=== PATIENT | female | born 1960 | race Caucasian/White ===

== ENCOUNTER 2016-09-29 07:30 | Inpatient (IN) | payer BC ==
[~2016-09-29] VITALS: Ht 165.1 cm; Wt 93.9 kg
[~2016-09-29 07:30] MED LIST: ESTRACE1 MG PO; HYDROCODONE-APA1 TAB PO; OXYBUTYNIN CHLOR5 MG PO; TYLENOL PM1 TAB PO; XANAX0.25 MG PO
[2016-09-29] MEDS ORDERED: PROBIOTIC1 EAC1 PO (09:56)
[2016-09-29 09:57] VITALS: BP 180/81; BMI 38.1
[2016-09-29 10:19] LABS: BASOPHILS 0.2 % (0.0-2.0); EOSINOPHILS 1.1 % (0-7); HEMATOCRIT 43.4 % (36.0-48.0); IMMATURE GRANULOCYTES 0.3 % (0-5); LYMPHOCYTES 20.8 % (15-50); MCH 30.7 pg (26.0-34.0); MCHC 34.6 g/dL (31.0-37.0); MCV 88.8 fL (80.0-100.0); MEAN PLATELET VOLUME 10.1 fL (7.4-10.4); MONOCYTES 7.7 % (2-11); NEUTROPHILS 69.9 % (40-80); PLATELET COUNT 253 10x3/uL (130-400); RBC 4.89 10x6/uL (4.00-5.40); RDW 13.4 % (11.5-14.5); WBC 8.9 10x3/uL (4.8-10.8)
[2016-09-29 10:39] LABS: CALC OSMOLALITY 277 mosm/kg (275-300); CALCIUM 9.7 mg/dL (8.5-10.1); CARBON DIOXIDE 22.6 mmol/L (21.0-32.0); CHLORIDE - SERUM 103 mmol/L (98-107); CREATININE - SERUM 0.7 mg/dL (0.6-1.3); GLUCOSE 100 mg/dL (74-106); POTASSIUM - SERUM 3.3 mmol/L (3.5-5.1); SODIUM 140 mmol/L (136-145); UREA NITROGEN 9 mg/dL (7-18); eGFR NON AFRICAN AMERICAN > 90 mL/min (90-120)
[2016-09-29 18:52] VITALS: BP 159/95
--- NOTE | 2016-09-29 19:20 | NUR ---
RECIEVED SHIFT REPORT. PT IS LYING IN BED. ALERT AND ORIENTED AND ABLE TO VERBALIZE NEEDS. IV IS PATENT AND FLUIDS RUNNING PER ORDER. LÓPEZ IS DRAINING URINE BY GRAVITY. SCD'S ON. PT IS AMBULATORY WITH ASSISTANCE BUT DOES REQUIRE MINIMAL ASSISTANCE TURNING IN BED FOR COMFORT AND SKIN CARE. DRESSINGS TO ABDOMEN C/D/I. VIJAY DRAIN INTACT WITH DRESSING C/D/I AND COMPRESSED. PT DENIES ANY PAIN AT THIS TIME. NO NEEDS ARE VERBALIZED AT THIS TIME. AT BEDSIDE. WILL CONTINUE TO MONITOR. SIDE RAILS ARE UP X 2. BED IS IN LOWEST POSITION. CALL LIGHT IS WITHIN REACH.
--- NOTE | 2016-09-29 20:17 | NUR ---
ADMIT ASSESSMENT COMPLETED. MEDS HUNG PER ORDER. PT STATUS REMAINS UNCHANGED FROM PREVIOUS. NO NEEDS ARE VOICED. WILL MONITOR. AT BEDSIDE. SIDE RAILS X 2. BED LOW. CALL LIGHT IN REACH.
--- NOTE | 2016-09-29 22:13 | NUR ---
PT REQUESTING SOMETHING FOR SLEEP. PAGE PLACED TO DR THURSTON. WILL AWAIT CALL BACK.
--- NOTE | 2016-09-29 22:16 | NUR ---
PAGE RECIEVED BACK AND NEW ORDERS RECIEVED.
[2016-09-30] VITALS (7 sets, daily range): BP systolic 109–167; BP diastolic 64–81; Ht 165.1 cm; Wt 93.9 kg
[2016-09-30 05:28] LABS: BASOPHILS 0.1 % (0.0-2.0); EOSINOPHILS 0 % (0-7); HEMATOCRIT 36.5 % (36.0-48.0); HEMOGLOBIN 12.4 g/dL (12-16); IMMATURE GRANULOCYTES 0.3 % (0-5); LYMPHOCYTES 8.7 % (15-50); MCH 30.5 pg (26.0-34.0); MCV 89.7 fL (80.0-100.0); MEAN PLATELET VOLUME 10.2 fL (7.4-10.4); MONOCYTES 8.7 % (2-11); NEUTROPHILS 82.2 % (40-80); PLATELET COUNT 238 10x3/uL (130-400); RBC 4.07 10x6/uL (4.00-5.40); RDW 13.5 % (11.5-14.5)
[2016-09-30 05:50] LABS: WBC 14.3 10x3/uL (4.8-10.8)
[2016-09-30 06:33] LABS: CALC OSMOLALITY 279 mosm/kg (275-300); CALCIUM 8.4 mg/dL (8.5-10.1); CARBON DIOXIDE 23.5 mmol/L (21.0-32.0); CHLORIDE - SERUM 107 mmol/L (98-107); GLUCOSE 118 mg/dL (74-106); MAGNESIUM - SERUM 1.6 mg/dL (1.8-2.4); PHOSPHOROUS 3.9 mg/dL (2.5-4.9); SODIUM 141 mmol/L (136-145); UREA NITROGEN 8 mg/dL (7-18)
[2016-09-30 06:36] LABS: CREATININE - SERUM 0.5 mg/dL (0.6-1.3); eGFR NON AFRICAN AMERICAN > 90 mL/min (90-120)
[2016-09-30 06:37] LABS: POTASSIUM - SERUM 3.9 mmol/L (3.5-5.1)
--- NOTE | 2016-09-30 07:47 | NUR ---
AWAKE AND ALERT. ORIENTED X3. NO C/O AT THIS TIME. LUNGS ARE CLEAR BUT DIMINISHED THROUGHOUT. INSTRUCTED IN USE OF IS WITH RETURN DEMONSTRATION. SKIN IS INITACT WITHOUT REDNESS EXCEPT 3 SMALL INSERTION SITES TO ABDOMEN WHICH HAVE DRY INTACT DRESSINGS INPLACE. VIJAY PATENT WITH SEROUS SANGUINESS DRAINAGE NOTED. DRESSING TO LEFT LOWER QUAD DRY AND INTACT. LEFT PORT PATENT WITHOUT REDNESS AT INSERTION SITE. LÓPEZ PATENT WITH CLEAR YELLOW URINE. DENIES NEEDS.
--- NOTE | 2016-09-30 10:00 | NUR ---
AMBULATED 50 FEET WITH SBA. SITTING UP IN CHAIR AT BEDSIDE AFTER ACTIVITY. NO C/O INCREASED PAIN WITH ACTIVITY.
--- NOTE | 2016-09-30 11:00 | NUR ---
AMBULATED AGAIN IN HALLWAY WITH PT. DID 100 FEET WITHOUT DIFFICULTY.
--- NOTE | 2016-09-30 11:27 | NUR ---
Patient Name: LORY MEYER Admission Status: Elective Accout number: [id number] Admission Date: 09-29-2016 : 1960 Admission Diagnosis: Attending: VU Current LOS: 1 Anticipated DC Date: 10-05-2016 Planned Disposition: Home with Home Health Primary Insurance: [employer] Discharge Planning Comments: CM MET WITH PATIENT REGARDING D/C NEEDS AND PLANS. PATIENT STATED SHE LIVES WITH HER SPOUSE (TANIA) AND HE WILL DRIVE HER HOME WHEN DISCHARGED. PATIENT STATED THERE ARE NO STEPS TO ENTER HER HOME BUT HAS TWO FLIGHTS W/RAILS AT HER HOME. PATIENTS PCP IS DR. JAIME AND PHARMACY IS [facility] [address]. PATIENT IS CURRENT WITH [facility]. PCP DR. ADDISON MCRAE ON [address]- [phone] TANIA (SPOUSE) [phone] Professor Of Criminal Justice: Estrellita Valerio Is the patient Alert and Oriented? Yes 0 * How many steps to enter\exit or inside your home? 0 0 * PCP DR. JAIME 0 * Pharmacy [facility] [address] 0 * Preadmission Environment Home with Family 0 * ADLs Independent 0 * Equipment None 0 * List name and contact numbers for known caregivers / representatives who currently or will assist patient after discharge: TANIA (SPOUSE) [phone] 0 * Community resources currently utilized Home Health 0 * Please name any agencies selected above. [facility] 0 * Additional services required to return to the preadmission environment? Yes 0 * Can the patient safely return to the preadmission environment? Yes 0 * Has this patient been hospitalized within the prior 30 days at any hospital? No 0 Grand Total: 0
--- NOTE | 2016-09-30 14:30 | NUR ---
LÓPEZ D/C WITH TIP INTACT WITHOUT DIFFICULTY. INSTRUCTED TO CALL WHEN SHE FEELS THE URGE TO VOID. WILL MONITOR.
--- NOTE | 2016-09-30 15:19 | NUR ---
DRESSING TO LEFT PORT CHANGED USING STERILE TECHNIQUES. NO C/O FROM PATIENT.
--- NOTE | 2016-09-30 18:30 | NUR ---
UP TO BR WITH ONE PERSON MIN ASSIST. VOIDED 200cc CLEAR YELLOW URINE. SKIN CARE PER SELF. SITTING UP IN CHIAR AT BEDSIDE AT THIS TIME. AT BEDSIDE. DENIES NEEDS.
--- NOTE | 2016-09-30 20:10 | NUR ---
PATIENT RESTING IN BED WATCING TV. NO SIGNS OF DISTRESS NOTD. SCHEDULED MEDICATIONS GIVEN. SHIFT ASSESSMENT COMPLETED. DENIES ANY NEEDS AT THIS TIME. BED LOW. CALL LIGHT IN REACH.
--- NOTE | 2016-09-30 23:42 | NUR ---
RN NOTE: PT RESTING QUIETLY IN SUPINE POSITION. LEFT PORT ACCESSED WITH NS INFUSING AT 125 ML / HR. FAMILY MEMBER IS AT BEDSIDE. WILL CONTINUE TO MONITOR FOR NEEDS. CALL LIGHT WITHIN REACH.
[2016-10-01 05:00] VITALS: BP 146/86
[2016-10-01 05:58] LABS: BASOPHILS 0.2 % (0.0-2.0); EOSINOPHILS 1.5 % (0-7); HEMATOCRIT 33.4 % (36.0-48.0); HEMOGLOBIN 10.8 g/dL (12-16); IMMATURE GRANULOCYTES 0.2 % (0-5); MCH 29.8 pg (26.0-34.0); MCHC 32.3 g/dL (31.0-37.0); MEAN PLATELET VOLUME 9.9 fL (7.4-10.4); MONOCYTES 8.8 % (2-11); NEUTROPHILS 66.3 % (40-80); PLATELET COUNT 217 10x3/uL (130-400); RBC 3.63 10x6/uL (4.00-5.40)
[2016-10-01 06:15] LABS: CALC OSMOLALITY 279 mosm/kg (275-300); CALCIUM 7.7 mg/dL (8.5-10.1); CARBON DIOXIDE 21.2 mmol/L (21.0-32.0); CHLORIDE - SERUM 109 mmol/L (98-107); CREATININE - SERUM 0.5 mg/dL (0.6-1.3); GLUCOSE 75 mg/dL (74-106); MAGNESIUM - SERUM 1.7 mg/dL (1.8-2.4); POTASSIUM - SERUM 3.4 mmol/L (3.5-5.1); SODIUM 142 mmol/L (136-145); UREA NITROGEN 7 mg/dL (7-18); eGFR NON AFRICAN AMERICAN > 90 mL/min (90-120)
[2016-10-01 06:16] LABS: PHOSPHOROUS 2.4 mg/dL (2.5-4.9)
[2016-10-01 06:28] LABS: WBC 8.2 10x3/uL (4.8-10.8)
--- NOTE | 2016-10-01 08:36 | NUR ---
AWAKE AND ALERT, ORIENTED X3. NO C/O AT THIS TIME. UP TO BR WITH SBA. VOIDED WITHOUT DIFFICULTY. LUNGS ARE CLEAR BILATERALLY, NO COUGH NOTED. SKIN IS INTACT WITHOUT REDNESS EXCEPT 3 SMALL INSERTION SITES TO ABDOMEN AND VIJAY IS PATENT WITH SEROUS SANGUINESS DRAINAGE. LEFT PORT PATENT WITHOUT REDNESS AT INSERTION SITE. DENIES NEEDS.
[2016-10-01 08:38] VITALS: BP 149/78
--- NOTE | 2016-10-01 10:00 | NUR ---
ASSISTED WITH BED BATH PER STAFF. ORAL CARE PER SELF. IS VERY STEADY ON HER FEET AND PT HAS SIGNED OFF. ENCOURAGED TO CALL FOR ASSISTANCE IF SHE FEELS WOBBLY OR UNSURE.
--- NOTE | 2016-10-01 12:30 | NUR ---
CL TRAY SERVED IN ROOM. ATE WHAT WAS COMFORTABLE FOR HER. NO C/O NAUSEA OR PAIN WITH LLIQUIDS. DENIES NEEDS.
[2016-10-01 12:43] VITALS: BP 153/78
[2016-10-01 16:13] VITALS: BP 155/78
--- NOTE | 2016-10-01 18:40 | NUR ---
ATE MOST OF CLEAR LIQUID SUPPER. NO CHANGES NOTED. DENIES NEEDS. CONTINUES TO PASS FLATUS. NO STOOL YET.
--- NOTE | 2016-10-01 19:25 | NUR ---
PATIENT UP IN CHAIR. PATIENT REQUESTED BANDAGE AROUND DRAIN BE CHANGED.
--- NOTE | 2016-10-01 20:00 | NUR ---
CHANGED BANDAGE AROUND DRAIN. PATIENT IN SEMI-FOWLERS POSITION AND DENIES OTHER NEEDS AT THIS TIME. BED IN LOWEST POSITION AND CALL LIGHT WITHIN REACH. PATIENT'S SISTER AT BEDSIDE.
[2016-10-01 23:00] VITALS: BP 158/66
--- NOTE | 2016-10-02 08:05 | NUR ---
AWAKE AND ALERT. ORIENTED X3. C/O SOME PAIN TO RIGHT LOWER QUAD. WILL MONITOR. LUNGS ARE CLEAR BILATERALLY, NO COUGH NOTED. SKIN IS INTACT WITHOUT REDNESS EXCEPT 3 SMALL INSERTION SITES TO ABDOMEN AND ONE SMALL INCISION WHICH ARE ALL CLEAN AND DRY. VIJAY PATENT WITH SEROUS SANGUINESS DRAINAGE NOTED. LEFT PORT PATENT WITHOUT REDNESS AT INSERTION SITE. UP AMBULATED IN [address] AT THIS TIME. AT BEDSIDE.
[2016-10-02 08:44] VITALS: BP 171/92
--- NOTE | 2016-10-02 09:51 | NUR ---
AMBULATED IN HALLWAY PER SELF. DENEIES NEEDS.
[2016-10-02 12:02] VITALS: BP 152/89
--- NOTE | 2016-10-02 13:03 | NUR ---
NUTRITION MONITORING & EVAL CHART REVIEWED. DIET ADVANCED TO FULL LIQUID. WILL CONTINUE TO MONITOR DIET ADVANCEMENT. RD FOLLOWING
--- NOTE | 2016-10-02 14:11 | NUR ---
VIJAY D/C WITHOUT DIFFICULTY INTACT. PATIENT TOLERATED WITHOUT DIFFICULTY.
--- NOTE | 2016-10-02 14:12 | NUR ---
CM REASSESSMENT NOTE: PATIENT IS DISCHARGING HOME WITH Member Savings Program [facility] (CURRENT WITH THEM) AND THEY HAVE BEEN NOTIFIED. PATIENTS SPOUSE IS DRIVING HER HOME AT DISCHARGE.
--- NOTE | 2016-10-02 15:20 | NUR ---
LEFT PORT HEPRANIZED PRIOR TO D/C ACCESS. DISCHARGED TO HOME AMBULATORY WITH FAMILY. DISCHARGE INSTRUCTIONS GIVEN BOTH VERBALLY AND WRITTEN. ALL QUESTIONS ANSWERED. NO NEW PRESCRIPTIONS NECESSARY. PATIENT AND FAMILY VERBALIZED UNDERSTANDING OF SAME.
--- NOTE | 2016-10-16 13:33 | OP ---
PATIENT NAME: LORY MEYER MEDICAL RECORD: [id number] :[birth year] LOCATION:[id number] ADMISSION DATE:09/29/16 SURGEON: FEMI THURSTON MD DATE OF OPERATION: 09/29/2016 PREOPERATIVE DIAGNOSES: 1. Colostomy. 2. Endometrial adenocarcinoma. 3. History of a large bowel obstruction secondary endometrial adenocarcinoma. 4. Morbid obesity. 5. History of left ureteral injury, status post stent placement. PROCEDURE: 1. Laparoscopic colostomy takedown. 2. Lysis of adhesions in the pelvis. 3. Left subclavian vein port placement. 4. Fluoroscopic interpretation. SURGEON: Femi Thurston MD REPORT OF PROCEDURE: The patient's abdomen was prepped and draped in sterile fashion. We dissected around the patient's indwelling left lower quadrant colostomy. We continued our dissection down through the fascia and into the abdominal cavity. Once we had freed it up, we elevated the colostomy through this incision and transected it at its base to remove some of the more beat up tissue. This was sent off for permanent specimen. A pursestring was then placed around the tissue using 2-0 Prolene and a 29 EEA anvil was inserted. The pursestring was sutured down tightly and we dropped this and the bowel back into the abdominal cavity. A 5-mm trocar was then placed in the left upper quadrant using my hand to palpate through the ostomy site. Once he had this in position, then the ostomy fascia was freed up and then closed more obliquely using interrupted 0 Prolenes. We then insufflated the abdomen and placed a 5-mm trocar in the midline just below the umbilicus. Another 5 mm trocar in the right lower quadrant and a final 12-mm trocar in the right lower abdomen. The patient had a lot of adhesions present in the pelvis. These were mainly small bowel to the surrounding tissues. We were able to free most of these up easily, but on the left lateral pelvis where the patient had a previous fluid collection from ureteral injury. There was a lot of scar tissue present. It was very firm. I was able to eventually dissect this out and we were able to get the pelvis completely free. The patient's rectum was visualized. As we tried to place the multiple dilators through the rectum, we took a very sharp turn to the patient's left, I was never able to free it up some of the old adhesions from the previous fluid collection. I eventually just came through the mesentery with the Endo-BISHOP stapler and finally transected the bowel using a 60 blue load Endo-BISHOP stapler, removing this kinked up tissue. This was sent off for permanent specimen. At this point, we could pass the dilators easily up and out through the rectum. A 29 EEA stapler was inserted and the anastomosis was performed under direct visualization. We checked the anastomosis under water by instilling air into the rectum and saw no sign of a leak. There were 2 complete rings present on the anastomotic stapler. I did have an area, which I did not fill quite as confident with and because the tissue seemed a little bit thin, I performed a Lemberted repair of the anterior and left side of the anastomosis using 4 separate 3-0 silks. There was good approximation of the tissue and we checked the anastomosis one last time by instilling water in the pelvis and placing air through the rectum again there was no sign of any bubbling or OPERATIVE REPORT [id number] LORY MEYER S ROSITA leakage. At this point, we irrigated out the abdomen thoroughly and assured there was no sign of any bleeding. The ports and insufflation were then removed after the 12-mm trocar site fascia had been closed with an 0 Vicryl using a Evan-Areli suture passer. Prior to all the ports being removed, a 19-Bengali Thee drain was inserted through the left lateral port and placed down in the pelvis. This was sutured into place with 3-0 nylon. The remaining incisions were infused with a total of 10 mL of 0.25% Marcaine with epinephrine and then closed with a skin stapler. At this point, we took down all the dressings and redraped the patient's left chest. A needle was used to cannulate the left subclavian vein. Multiple attempts were needed to perform this, but we eventually were able to pass the wire and using fluoroscopic interpretation, I could see the wire was in good position in the venous system. A skin incision was then made on the patient's left lateral chest and we dissected down to the pectoral fascia. A subcutaneous pouch was made overlying this packed fascia. The catheter was tunneled between this pouch and the wire exit site. The catheter was then sutured to the pectoral fascia using interrupted 2-0 Prolenes times 2. The catheter was then cut with a beveled tip at 25 cm. The dilator trocar device was placed over the wire and the wire and dilator were removed. The catheter tip was advanced through the trocar and the trocar was removed. The catheter tip rested in good position at the right atrial superior vena caval junction. The catheter aspirated nonpulsatile dark blood and flushed easily with heparinized saline. The subcutaneous tissues were reapproximated with interrupted 3-0 Vicryl and the skin was closed with running subcutaneous 5-0 Monocryl. We then accessed the port and dressed it appropriately. COMPLICATIONS: None. CONDITION: Stable. ANESTHESIA: General endotracheal and local. BLOOD LOSS: 50 mL. TRANSINT:[id number] Voice Confirmation ID: [id number] DOCUMENT ID: [id number] FEMI THURSTON MD at 1333 CC: GRICEL GOLDMAN MD and AZALIA JAIME MD [id number] DICTATION DATE: 09/29/161811 DIRECTOR MEDICAID: 09/29/16 193 DIS IN 10/02/16 [facility] [address] [place] [address]
--- NOTE | 2016-11-20 13:21 | DS ---
PATIENT:LORY MEYER :64 MEDICAL RECORD: [id number] DISCHARGE SUMMARY ADMISSION DATE: 09/29/16 DISCHARGE DATE: 10/02/16 DATE OF ADMISSION: 09/29/2016 DATE OF DISCHARGE: 10/02/2016 ADMISSION DIAGNOSES: 1. Endometrial adenocarcinoma. 2. History of large bowel obstruction status post Joe procedure. 3. Indwelling colostomy. 4. History of left ureteral injury. 5. Morbid obesity. DISCHARGE DIAGNOSES: 1. Endometrial adenocarcinoma. 2. History of large bowel obstruction status post Joe procedure. 3. Indwelling colostomy. 4. History of left ureteral injury. 5. Morbid obesity. PROCEDURE: Colostomy reversal on 09/29/2016 and left subclavian vein port placement on 09/29/2016. CONSULTATIONS: None. REPORT OF HOSPITALIZATION: The patient was admitted to the hospital after successful port placement and colostomy reversal. The patient was started on a diet 2 days postoperatively. At that point, she was doing well and was ambulating. She tolerated her diet well and was advanced to a regular diet by the time of discharge. Her labs were all stable. At the day of discharge, she was felt to be stable for discharge home. DISCHARGE MEDICATIONS: Resume all home medications. DISCHARGE DIET: Regular. ACTIVITIES: No heavy lifting or straining for 6 weeks postoperatively. FOLLOWUP: In clinic with me in 10-14 days. TRANSINT:[id number] Voice Confirmation ID: [id number] DOCUMENT ID: [id number] SIDDHARTH THURSTON MD at 1321 CC: [id number] DICTATION DATE: 11/03/16 173 INFORMATION TECHNOLOGY DATA ANALYST: 11/04/16 1157 DIS IN 10/02/16 [facility] [address] [place] [address]
== END 2016-10-02 15:20 | disposition home health service (06) | DRG 330 ==
LOC: D.SDCHOLD 07:30 → D.MS 09:17 → D.SDCHOLD 09:17 → D.MS 16:01
PROVIDERS: ADMIT Surgery
PROC: 0JH63XZ Insertion of Tunneled Vascular Access Device into Chest Subcutaneous Tissue and Fascia, Percutaneous Approach (ICD-10-PCS; 2016-09-29)
PROC: 05H633Z Insertion of Infusion Device into Left Subclavian Vein, Percutaneous Approach (ICD-10-PCS; 2016-09-29)
PROC: B5171ZA Fluoroscopy of Left Subclavian Vein using Low Osmolar Contrast, Guidance (ICD-10-PCS; 2016-09-29)
PROC: 0JH60XZ Insertion of Tunneled Vascular Access Device into Chest Subcutaneous Tissue and Fascia, Open Approach (ICD-10-PCS; 2016-09-29)
PROC: 02HV33Z Insertion of Infusion Device into Superior Vena Cava, Percutaneous Approach (ICD-10-PCS; 2016-09-29)
PROC: 0DBE4ZZ Excision of Large Intestine, Percutaneous Endoscopic Approach (ICD-10-PCS; principal; 2016-09-29 12:00)
PROC: 0DN84ZZ Release Small Intestine, Percutaneous Endoscopic Approach (ICD-10-PCS; 2016-09-29 12:00)
DX: Z43.3 Encounter for attention to colostomy (principal); C56.9 Malignant neoplasm of unspecified ovary; E66.01 Morbid (severe) obesity due to excess calories; Z68.34 Body mass index [BMI] 34.0-34.9, adult

== ENCOUNTER → 2018-03-15 10:02 | Outpatient (CLI) | payer BC ==
[2016-09-30 13:41] VITALS: BMI 34.4
[~2018-03-15 10:02] MED LIST changes: +PROBIOTIC1 EAC1 PO
== END | disposition home or self-care (01) ==
LOC: D.RAD 10:02
DX: J32.2 Chronic ethmoidal sinusitis (principal)